=== PATIENT | female | born 1985 | race Caucasian/White ===

== ENCOUNTER 2018-01-03 01:09 | Emergency (ER) | payer OTHER ==
--- NOTE | 2018-01-03 01:23 | PDOC ---
History of Present Illness - General History Source: Patient Exam Limitations: No Limitations - History of Present Illness Initial Comments: 01/03/18 02:09 The patient is a 32 year old female with no significant PMH who presents to the emergency department with a cough and chest pain for a few days. The patient reports that she was recently seen at urgent care 1 week ago and diagnosed with pneumonia whereby she was sent home with antibiotic. The patient reports that she was prompted to come to the ed today because her symptoms have not resolved though she has taken her prescribed medication. The patient reports associated symptoms of headache, productive cough with yellow colored sputum, substernal chest pain and shortness of breath and wheezing. The patient denies any significant relief with medication. The patient denies any other symptoms. She denies any fever, chills, nausea, vomiting, diarrhea, constipation or urinary symptoms. She denies any headache or dizziness. The patient denies any other complaints. <Brenda Cannon - Last Filed: 01/03/18 02:09> <Libertad Johnston - Last Filed: 01/03/18 06:03> - General Stated Complaint: COUGH/CHEST PAIN/HEADACHE Time Seen by Provider: 01/03/18 01:23 Past History <Brenda Cannon - Last Filed: 01/03/18 02:09> <Libertad Johnston - Last Filed: 01/03/18 06:03> - Past Medical History Allergies/Adverse Reactions: Allergies Allergy/AdvReac Type Severity Reaction Status Date / Time No Known Allergies Allergy Verified 01/03/18 02:19 Home Medications: Ambulatory Orders NK [No Known Home Medication] 01/03/18 Review of Systems - Review of Systems Able to Perform ROS?: Yes Comments:: 01/03/18 02:09 GENERAL/CONSTITUTIONAL: No fever or chills. No weakness. HEAD, EYES, EARS, NOSE AND THROAT: No change in vision. No ear pain or discharge. No sore throat. CARDIOVASCULAR: (+)chest pain, shortness of breath. RESPIRATORY: (+)cough, wheezing. No hemoptysis. GASTROINTESTINAL: No nausea, vomiting, diarrhea or constipation. GENITOURINARY: No dysuria, frequency, or change in urination. MUSCULOSKELETAL: No joint or muscle swelling or pain. No neck or back pain. SKIN: No rash NEUROLOGIC: No headache, vertigo, loss of consciousness, or change in strength/ sensation. ENDOCRINE: No increased thirst. No abnormal weight change. HEMATOLOGIC/LYMPHATIC: No anemia, easy bleeding, or history of blood clots. ALLERGIC/IMMUNOLOGIC: No hives or skin allergy. <Brenda Cannon - Last Filed: 01/03/18 02:09> *Physical Exam - Vital Signs Last Vital Signs Temp Pulse Resp BP Pulse Ox 99.0 F 88 22 H 129/84 95 01/03/18 01:52 01/03/18 01:52 01/03/18 01:52 01/03/18 01:52 01/03/18 01:52 - Physical Exam Comments: 01/03/18 02:10 GENERAL: Awake, alert, and fully oriented, in no acute distress HEAD: No signs of trauma EYES: PERRLA, EOMI, sclera anicteric, conjunctiva clear ENT: Auricles normal inspection, hearing grossly normal, nares patent, oropharynx clear without exudates. Moist mucosa NECK: Normal ROM, supple, no lymphadenopathy, JVD, or masses LUNGS: (+)expiratory wheezing. Breath sounds equal, clear to auscultation bilaterally. No crackles HEART: Regular rate and rhythm, normal S1 and S2, no murmurs, rubs or gallops ABDOMEN: Soft, nontender, normoactive bowel sounds. No guarding, no rebound. No masses EXTREMITIES: Normal range of motion, no edema. No clubbing or cyanosis. No cords, erythema, or tenderness NEUROLOGICAL: Cranial nerves II through XII grossly intact. Normal speech, normal gait SKIN: Warm, Dry, normal turgor, no rashes or lesions noted. <Brenda Cannon - Last Filed: 01/03/18 02:09> ED Treatment Course - LABORATORY CBC & Chemistry Diagram: 01/03/18 05:13 01/03/18 05:13 <Libertad Johnston - Last Filed: 01/03/18 06:03> Medical Decision Making - Medical Decision Making 01/03/18 06:01 Referring Physician: KAYLIE MARIE Patient Name: MAURO MAYA THIS IS A PRELIMINARY REPORT FROM [facility] DATE OF SERVICE: 2018-01-03 04:14:43 IMAGES: 2 EXAM: X-RAY CHEST No focal lung consolidation or pleural effusions. Hypoinflation lungs. Cardiomegaly and/or pericardial effusion. THIS DOCUMENT HAS BEEN ELECTRONICALLY SIGNED Pt has a viral URI. SHe will follow with her PMD. <Libertad Johnston - Last Filed: 01/03/18 06:03> *DC/Admit/Observation/Transfer - Attestations Scribe Attestion: 01/03/18 02:10 Documentation prepared by Brenda Cannon, acting as medical coding manager for Libertad Johnston MD. <Brenda Cannon - Last Filed: 01/03/18 02:09> - Discharge Dispostion Decision to Admit order: No <Libertad Johnston - Last Filed: 01/03/18 06:03> Diagnosis at time of Disposition: Viral URI with cough - Discharge Dispostion Disposition: HOME Condition at time of disposition: Stable - Patient Instructions Printed Discharge Instructions: DI for Viral Syndrome - Post Discharge Activity Forms/Work/School Notes: Back to Work
[2018-01-03 01:56] VITALS: BP 129/84; PULSE 88; TEMP 99
[2018-01-03 02:13] VITALS: BMI 36.1
[2018-01-03] MEDS ORDERED: ALBUTEROL SO4 2.5/IPRATROPIUM 0.5 INH SOL 3 ML VIAL.NEB. NEB ONE ×2 (04:59→05:07)
[2018-01-03] MEDS ORDERED: DEXAMETHASONE LIQUID 0.5 MG/5 ML 240 ML BULK BOTTLE PO ONE (04:59)
[2018-01-03] MEDS ORDERED: DEXAMETHASONE SOD PHOSPHATE 10 MG/1 ML VIAL ONE (05:07)
[2018-01-03 05:31] LABS: BASO % 0.6 % (0-2.0); HEMATOCRIT 39.9 % (32.4-45.2); HEMOGLOBIN 13.5 GM/dL (10.7-15.3); LYMPH % 23.8 % (8-40); MCH 29.7 pg (25.7-33.7); MCHC 33.7 g/dl (32.0-36.0); MEAN PLT VOLUME 8.9 fl (7.5-11.1); MONO % 6.4 % (3.8-10.2); NEUT % 66.2 % (42.8-82.8); PLATELET COUNT 333 K/MM3 (134-434); RBC 4.53 M/mm3 (3.60-5.2); RDW 13.7 % (11.6-15.6); WHITE BLOOD COUNT 8.9 K/mm3 (4.0-10.0)
[2018-01-03 05:53] LABS: ALBUMIN 3.5 g/dl (3.4-5.0); ALK PHOS 60 U/L (45-117); ANION GAP 7 MMOL/L (8-16); BILIRUBIN,TOTAL 0.4 mg/dL (0.2-1); BLOOD UREA NITROGEN 8 mg/dL (7-18); CALCIUM 9.1 mg/dL (8.5-10.1); CHLORIDE 108 mmol/L (98-107); CO2 27 mmol/L (21-32); CREATININE 0.9 mg/dL (0.55-1.3); GLUCOSE,RANDOM 94 mg/dL (74-106); POTASSIUM 4.4 mmol/L (3.5-5.1); SGOT/AST 13 U/L (15-37); SGPT/ALT 19 U/L (13-61); SODIUM 141 mmol/L (136-145); TOT PROT 7.2 g/dl (6.4-8.2)
== END 2018-01-03 06:40 | disposition home or self-care (01) ==
LOC: JER 01:09
PROC: 3E0F7GC Introduction of Other Therapeutic Substance into Respiratory Tract, Via Natural or Artificial Opening (ICD-10-PCS; principal; 2018-01-03)
DX: J06.9 Acute upper respiratory infection, unspecified (principal); B97.89 Other viral agents as the cause of diseases classified elsewhere
CPT/HCPCS: 36415; 71046-TC-FY; 80053; 84703; 85025; 87040; 87804; 99281-25; J7620